=== PATIENT | male | born 1995 | race Caucasian/White ===

== ENCOUNTER 2017-01-04 06:55 | Emergency (ER) | payer OTHER ==
[~2017-01-04] VITALS: Ht 182.9 cm; Wt 74.1 kg
[2017-01-04] MEDS ORDERED: IBUPROFEN 200 MG TABLET PO ONE (07:30)
[2017-01-04] MEDS ORDERED: IBUPROFEN 200 MG TABLET ONE (07:41)
[2017-01-04 07:53] VITALS: BP 115/74
== END 2017-01-04 08:40 | disposition home or self-care (01) ==
LOC: ED 08:34
DX: S93.491A Sprain of other ligament of right ankle, initial encounter (principal); S82.64XA Nondisplaced fracture of lateral malleolus of right fibula, initial encounter for closed fracture; W17.89XA Other fall from one level to another, initial encounter; Y93.89 Activity, other specified; Y92.89 Other specified places as the place of occurrence of the external cause; Y99.8 Other external cause status
CPT/HCPCS: 29515